=== PATIENT | male | born 1960 | race Caucasian/White ===

== ENCOUNTER 2022-08-13 15:17 | Inpatient (IN) | payer MEDICARE ==
[2022-08-13] MEDS ORDERED: Ondansetron PF 4 MG/2 ML Vial IVP PRN (17:25)
[2022-08-13] MEDS ORDERED: HYDROcodone/Acetaminophen 5/325 mg Tablet PO PRN (17:25)
[2022-08-13] MEDS ORDERED: Acetaminophen 325 MG TAB PO PRN (17:25)
[2022-08-13] MEDS ORDERED: Dextrose 50% Abboject 50 ML SYRINGE SLOW IVP PRN (17:34)
[2022-08-13] MEDS ORDERED: Dextrose 5% in Water 1,000 ML IV PRN (17:34)
[2022-08-13] MEDS ORDERED: hydrALAZINE 20 MG/ML VIAL SLOW IVP PRN (18:00)
[2022-08-13] MEDS ORDERED: Furosemide 100 MG/10 ML VIAL SLOW IVP SCH (18:00)
[2022-08-13 19:35] LABS: #Basophils 0.1 10x3/uL (0.0-0.2); #Eosinphils 0.1 10x3/uL (0.0-0.5); #Monocytes 1.3 10x3/uL (0.0-1.1); %Basophils 0.4 % (0.0-2.0); %Eosinophils 0.9 % (0.0-6.0); %Lymphocytes 16.5 % (18.0-47.0); %Monocytes 9.2 % (0.0-10.0); %Neutrophils 72.6 % (40.0-75.0); Hemoglobin 11.3 g/dL (13.5-17.5); Mean Corpuscular HGB CONC 32.3 g/dL (32.0-36.0); Mean Corpuscular Hemoglobin 24.1 pg (27.0-33.0); Mean Corpuscular Volume 74.8 fl (81.2-95.1); Mean Platelet Volume 9.9 fl (7.4-10.4); Platelet Count 275 10x3/uL (150-450); RBC Distribution Width 15.4 % (11.5-14.5); Red Blood Cell (RBC) Count 4.68 10x6/uL (4.32-5.72); White Blood Cell (WBC) Count 13.7 10x3/uL (3.5-10.5)
[2022-08-13 19:50] LABS: ALT (SGPT) 25 U/L (8-55); AST (SGOT) 32 U/L (5-34); Albumin 3.1 g/dL (3.4-4.8); Alkaline Phosphatase 74 U/L (40-110); Anion Gap 13 mmol/L (10-20); BUN (Urea Nitrogen) 39 mg/dL (8.4-25.7); Bilirubin, Total 0.8 mg/dL (0.2-1.2); Calc. Creatinine Clearance 24 mL/min (70-130); Calcium 8.3 mg/dL (7.8-10.44); Carbon Dioxide 21 mmol/L (23-31); Chloride 104 mmol/L (98-107); Estimated GFR 11; Globulin 3.6 g/dL (2.4-3.5); Glucose 122 mg/dL (80-115); Potassium 4.2 mmol/L (3.5-5.1); Protein, Total 6.7 g/dL (5.8-8.1); Sodium 134 mmol/L (136-145)
[2022-08-13] MEDS: Azithromycin 500 MG in Sodium Chloride 0.9% 250 ML 250 ML IVPB SCH (20:15)
[2022-08-13] MEDS: Heparin 5,000 UNITS/ML VIAL SC SCH (20:17)
[2022-08-13 20:19] LABS: Bilirubin Neg (Negative); Blood, Urine 250 (Negative); Clarity Clear (Clear); Glucose, Urine (Dipstick) 100 mg/dL (Negative); Ketone, Urine Negative (Negative); Leukocyte Negative (Negative); Nitrite Negative (Negative); Protein, Urine (Dipstick) 500 mg/dl (Neg-Trace); Specific Gravity, Urine 1.015 (1.005-1.030); Urobilinogen Normal mg/dL (Less than 2)
[2022-08-13 20:39] LABS: ALV-art Gradient 143.025 mmHg (0-20); Actual Bicarbonate (HCO3a) 21.8 mEq/L (22-28); Base Excess (BEa) -1.9 mEq/L (-2.0 to +3.0); CO2 Tension 33.5 mmHg (35.0-45.0); Calcium, Ionized (arterial) 1.04 mmol/L (1.12-1.30); Carboxyhemoglobin (COHb) 0.3 gm% (0.0-3.0); Critical Notified By: CP.PH; Hemoglobin (Hb) 11.8 g/dL (14.0-18.0); O2 Tension (PaO2), arterial 100.3 mmHg (> 80.0); Potassium - ABG Lab 3.8 mmol/L (3.70-5.30); Puncture Site RRA; RapidComm Collect By CP.PH; pH, Arterial 7.43 (7.35-7.45)
[2022-08-13 21:12] LABS: Bacteria/HPF Rare-Few HPF (None Seen); Transitional Epithelial 0-3 HPF (None Seen); WBC/HPF 0-3 HPF (0-3)
[2022-08-13] MEDS: Cefepime 1 GM in Sodium Chloride 0.9% 100 ML IVPB SCH (21:19)
[2022-08-13] MEDS: Furosemide 40 MG/4 ML VIAL SLOW IVP SCH (21:20)
[2022-08-13] MEDS: Nitroglycerin 2% Ointment 1 INCH/1 GM Packet TOP SCH (21:20)
[2022-08-13 21:36] LABS: CKMB 3.4 ng/mL (0-6.6)
[2022-08-14 03:33] LABS: #Basophils 0.1 10x3/uL (0.0-0.2); #Eosinphils 0.4 10x3/uL (0.0-0.5); #Monocytes 1.1 10x3/uL (0.0-1.1); #Neutrophils 6.8 10x3/uL (1.5-8.4); %Basophils 0.6 % (0.0-2.0); %Eosinophils 3.7 % (0.0-6.0); %Lymphocytes 19.7 % (18.0-47.0); %Monocytes 10.9 % (0.0-10.0); %Neutrophils 64.8 % (40.0-75.0); Hemoglobin 11.2 g/dL (13.5-17.5); Mean Corpuscular HGB CONC 31.7 g/dL (32.0-36.0); Mean Corpuscular Hemoglobin 24.4 pg (27.0-33.0); Mean Corpuscular Volume 76.9 fl (81.2-95.1); Mean Platelet Volume 9.7 fl (7.4-10.4); Platelet Count 251 10x3/uL (150-450); RBC Distribution Width 15.4 % (11.5-14.5); Red Blood Cell (RBC) Count 4.59 10x6/uL (4.32-5.72); White Blood Cell (WBC) Count 10.5 10x3/uL (3.5-10.5)
[2022-08-14 03:46] LABS: ALT (SGPT) 25 U/L (8-55); AST (SGOT) 30 U/L (5-34); Alkaline Phosphatase 75 U/L (40-110); Anion Gap 14 mmol/L (10-20); BUN (Urea Nitrogen) 42 mg/dL (8.4-25.7); Bilirubin, Total 0.7 mg/dL (0.2-1.2); Calc. Creatinine Clearance 23 mL/min (70-130); Calcium 8.3 mg/dL (7.8-10.44); Carbon Dioxide 22 mmol/L (23-31); Chloride 104 mmol/L (98-107); Estimated GFR 11; Globulin 3.5 g/dL (2.4-3.5); Glucose 109 mg/dL (80-115); Magnesium 1.7 mg/dL (1.6-2.6); Potassium 3.7 mmol/L (3.5-5.1); Protein, Total 6.5 g/dL (5.8-8.1); Sodium 136 mmol/L (136-145)
[2022-08-14 04:07] LABS: CKMB 2.9 ng/mL (0-6.6)
[2022-08-14] MEDS: Nitroglycerin 2% Ointment 1 INCH/1 GM Packet TOP SCH ×3 (06:07→21:11)
[2022-08-14] MEDS: Furosemide 40 MG/4 ML VIAL SLOW IVP SCH ×3 (06:07→21:11)
[2022-08-14] MEDS: Heparin 5,000 UNITS/ML VIAL SC SCH ×3 (07:41→20:55)
[2022-08-14 08:57] LABS: Iron 18 ug/dL (65-175); Iron Binding Capacity, Total 284 mcg/dL (261-462)
[2022-08-14] MEDS: Iron, Sodium Ferric Gluconate 250 MG in Sodium Chloride 0.9% 250 ML 250 ML IVPB SCH (09:52)
[2022-08-14] MEDS ORDERED: guaiFENesin/Codeine Phosphate 100 mg/10 mg 5 ml UD Cup PO PRN (14:14)
[2022-08-14] MEDS: Benzonatate 100 MG CAP PO PRN (14:21)
[2022-08-14] MEDS ORDERED: guaiFENesin/Codeine Phosphate 100 mg/10 mg 5 ml UD Cup PO SCH (15:00)
[2022-08-14] MEDS ORDERED: Fluticasone Propionate Nasal Spray 16 gm Bottle NASAL SCH (15:00)
[2022-08-14] MEDS: Azithromycin 500 MG in Sodium Chloride 0.9% 250 ML 250 ML IVPB SCH (17:13)
[2022-08-14] MEDS: HumaLOG 300 UNITS/3 ML VIAL SC PRN (17:13)
[2022-08-14] MEDS: Carvedilol 6.25 MG TAB PO SCH (17:14)
[2022-08-14] MEDS: Cefepime 1 GM in Sodium Chloride 0.9% 100 ML IVPB SCH (20:54)
[2022-08-14] MEDS: hydrALAZINE 25 MG TAB PO SCH (20:54)
[2022-08-15 04:09] LABS: Anion Gap 14 mmol/L (10-20); BUN (Urea Nitrogen) 45 mg/dL (8.4-25.7); Calc. Creatinine Clearance 23 mL/min (70-130); Calcium 8.6 mg/dL (7.8-10.44); Carbon Dioxide 24 mmol/L (23-31); Chloride 101 mmol/L (98-107); Estimated GFR 11; Glucose 106 mg/dL (80-115); Magnesium 1.6 mg/dL (1.6-2.6); Sodium 135 mmol/L (136-145)
[2022-08-15 04:45] VITALS: BMI 32.2
[2022-08-15] MEDS: Benzonatate 100 MG CAP PO PRN (06:27)
[2022-08-15] MEDS: Furosemide 40 MG/4 ML VIAL SLOW IVP SCH ×3 (06:27→21:47)
[2022-08-15] MEDS: Nitroglycerin 2% Ointment 1 INCH/1 GM Packet TOP SCH ×3 (06:27→21:48)
[2022-08-15] MEDS ORDERED: Magnesium 2 GM/50 ML(in water) 2 GM in Premix Bag 1 BAG IVPB SCH (08:00)
[2022-08-15] MEDS: Carvedilol 6.25 MG TAB PO SCH (09:00)
[2022-08-15] MEDS: hydrALAZINE 25 MG TAB PO SCH ×3 (09:01→21:47)
[2022-08-15] MEDS: Heparin 5,000 UNITS/ML VIAL SC SCH ×3 (09:01→21:48)
[2022-08-15] MEDS: Fluticasone Propionate Nasal Spray 16 gm Bottle NASAL SCH (09:01)
[2022-08-15] MEDS: Loratadine 10 MG TAB PO SCH (09:01)
[2022-08-15] MEDS: Iron, Sodium Ferric Gluconate 250 MG in Sodium Chloride 0.9% 250 ML 250 ML IVPB SCH ×2 (11:36→14:25)
[2022-08-15] MEDS: HumaLOG 300 UNITS/3 ML VIAL SC PRN (11:56)
[2022-08-15] MEDS: Carvedilol 25 MG TAB PO SCH (16:44)
[2022-08-15] MEDS ORDERED: Amlodipine 5 MG TAB PO SCH (18:00)
[2022-08-16 05:18] LABS: Anion Gap 16 mmol/L (10-20); BUN (Urea Nitrogen) 54 mg/dL (8.4-25.7); Calc. Creatinine Clearance 22 mL/min (70-130); Calcium 8.4 mg/dL (7.8-10.44); Carbon Dioxide 22 mmol/L (23-31); Chloride 99 mmol/L (98-107); Estimated GFR 11; Glucose 199 mg/dL (80-115); Magnesium 2.1 mg/dL (1.6-2.6); Potassium 3.8 mmol/L (3.5-5.1); Sodium 133 mmol/L (136-145)
[2022-08-16] MEDS: Nitroglycerin 2% Ointment 1 INCH/1 GM Packet TOP SCH (06:00)
[2022-08-16] MEDS: Furosemide 40 MG/4 ML VIAL SLOW IVP SCH ×3 (06:00→23:12)
[2022-08-16] MEDS: Fluticasone Propionate Nasal Spray 16 gm Bottle NASAL SCH (08:37)
[2022-08-16] MEDS: Amlodipine 10 MG TAB PO SCH (08:38)
[2022-08-16] MEDS: Sodium Bicarbonate Tab 325 MG TAB PO SCH ×2 (08:38→20:28)
[2022-08-16] MEDS: Loratadine 10 MG TAB PO SCH (08:38)
[2022-08-16] MEDS: Heparin 5,000 UNITS/ML VIAL SC SCH ×3 (08:39→20:28)
[2022-08-16] MEDS: Carvedilol 25 MG TAB PO SCH ×2 (08:39→17:21)
[2022-08-16] MEDS: HumaLOG 300 UNITS/3 ML VIAL SC PRN ×2 (12:33→17:14)
[2022-08-16] MEDS: Iron, Sodium Ferric Gluconate 250 MG in Sodium Chloride 0.9% 250 ML 250 ML IVPB SCH ×2 (13:43→20:28)
[2022-08-16 18:07] LABS: 24 Hr Creatinine 1258.6 mg/24 hr (950-2490); Creatinine, Urine 40.6 mg/dL (63-166)
[2022-08-17 04:42] LABS: Anion Gap 15 mmol/L (10-20); BUN (Urea Nitrogen) 51 mg/dL (8.4-25.7); Calc. Creatinine Clearance 21 mL/min (70-130); Calcium 8.5 mg/dL (7.8-10.44); Carbon Dioxide 24 mmol/L (23-31); Chloride 99 mmol/L (98-107); Estimated GFR 11; Glucose 227 mg/dL (80-115); Sodium 134 mmol/L (136-145)
[2022-08-17] MEDS: Furosemide 40 MG/4 ML VIAL SLOW IVP SCH ×3 (06:31→21:29)
[2022-08-17] MEDS: Fluticasone Propionate Nasal Spray 16 gm Bottle NASAL SCH (08:49)
[2022-08-17] MEDS: Loratadine 10 MG TAB PO SCH (08:49)
[2022-08-17] MEDS: Amlodipine 10 MG TAB PO SCH (08:49)
[2022-08-17] MEDS: Carvedilol 25 MG TAB PO SCH ×2 (08:49→17:20)
[2022-08-17] MEDS: Sodium Bicarbonate Tab 325 MG TAB PO SCH ×2 (08:49→21:29)
[2022-08-17] MEDS: Heparin 5,000 UNITS/ML VIAL SC SCH ×3 (08:49→21:42)
[2022-08-17] MEDS: Iron, Sodium Ferric Gluconate 250 MG in Sodium Chloride 0.9% 250 ML 250 ML IVPB SCH (10:20)
[2022-08-17] MEDS: HumaLOG 300 UNITS/3 ML VIAL SC PRN ×3 (12:39→21:39)
[2022-08-18 05:06] LABS: Anion Gap 15 mmol/L (10-20); BUN (Urea Nitrogen) 50 mg/dL (8.4-25.7); Calc. Creatinine Clearance 21 mL/min (70-130); Calcium 8.7 mg/dL (7.8-10.44); Carbon Dioxide 25 mmol/L (23-31); Chloride 97 mmol/L (98-107); Estimated GFR 10; Glucose 129 mg/dL (80-115); Potassium 3.9 mmol/L (3.5-5.1); Sodium 133 mmol/L (136-145)
[2022-08-18] MEDS: Furosemide 40 MG/4 ML VIAL SLOW IVP SCH ×3 (06:52→21:15)
[2022-08-18] MEDS: Loratadine 10 MG TAB PO SCH (08:38)
[2022-08-18] MEDS: Amlodipine 10 MG TAB PO SCH (08:38)
[2022-08-18] MEDS: Heparin 5,000 UNITS/ML VIAL SC SCH ×3 (08:38→20:44)
[2022-08-18] MEDS: Fluticasone Propionate Nasal Spray 16 gm Bottle NASAL SCH (08:38)
[2022-08-18] MEDS: Carvedilol 25 MG TAB PO SCH ×2 (08:38→17:09)
[2022-08-18] MEDS: Sodium Bicarbonate Tab 325 MG TAB PO SCH ×2 (08:38→20:44)
[2022-08-18] MEDS: HumaLOG 300 UNITS/3 ML VIAL SC PRN ×2 (17:47→20:52)
[2022-08-18] MEDS: tiZANidine HCl 4 MG TAB PO SCH (20:43)
[2022-08-18] MEDS: Gabapentin 300 MG CAP PO SCH (20:44)
[2022-08-19 05:28] LABS: Anion Gap 17 mmol/L (10-20); BUN (Urea Nitrogen) 55 mg/dL (8.4-25.7); Calc. Creatinine Clearance 21 mL/min (70-130); Carbon Dioxide 24 mmol/L (23-31); Chloride 98 mmol/L (98-107); Estimated GFR 11; Glucose 137 mg/dL (80-115); Potassium 4.1 mmol/L (3.5-5.1); Sodium 135 mmol/L (136-145)
[2022-08-19] MEDS: Furosemide 40 MG/4 ML VIAL SLOW IVP SCH (05:29)
[2022-08-19] MEDS ORDERED: Torsemide 100 MG TAB PO SCH (08:30)
[2022-08-19] MEDS: Heparin 5,000 UNITS/ML VIAL SC SCH ×3 (09:21→21:50)
[2022-08-19] MEDS: Carvedilol 25 MG TAB PO SCH ×2 (09:21→17:56)
[2022-08-19] MEDS: Loratadine 10 MG TAB PO SCH (09:21)
[2022-08-19] MEDS: Amlodipine 10 MG TAB PO SCH (09:21)
[2022-08-19] MEDS: tiZANidine HCl 4 MG TAB PO SCH ×2 (09:21→21:19)
[2022-08-19] MEDS: Sodium Bicarbonate Tab 325 MG TAB PO SCH ×2 (09:21→21:18)
[2022-08-19] MEDS: Gabapentin 300 MG CAP PO SCH ×2 (09:21→21:18)
[2022-08-19] MEDS: Fluticasone Propionate Nasal Spray 16 gm Bottle NASAL SCH (09:22)
[2022-08-19 15:37] LABS: A/G Ratio 0.7 (0.7-1.7); Albumin 2.5 g/dL (2.9-4.4); Alpha 1 0.3 g/dL (0.0-0.4); Alpha 2 1.2 g/dL (0.4-1.0); Beta 0.9 g/dL (0.7-1.3); Gamma 1.1 g/dL (0.4-1.8); Globulin, Total 3.5 g/dL (2.2-3.9); M-Spike Not Observed g/dL (Not Observed); Protein Electrophoresis Intrp Note: (.)
[2022-08-19] MEDS: HumaLOG 300 UNITS/3 ML VIAL SC PRN ×2 (18:33→21:20)
[2022-08-20 04:42] LABS: Anion Gap 13 mmol/L (10-20); BUN (Urea Nitrogen) 61 mg/dL (8.4-25.7); Calc. Creatinine Clearance 21 mL/min (70-130); Calcium 8.8 mg/dL (7.8-10.44); Carbon Dioxide 27 mmol/L (23-31); Chloride 97 mmol/L (98-107); Estimated GFR 11; Glucose 176 mg/dL (80-115); Potassium 4.3 mmol/L (3.5-5.1); Sodium 133 mmol/L (136-145)
[2022-08-20] MEDS: HumaLOG 300 UNITS/3 ML VIAL SC PRN (06:05)
[2022-08-20 06:39] VITALS: TEMP 98.7
[2022-08-20] MEDS: Sodium Bicarbonate Tab 325 MG TAB PO SCH (08:39)
[2022-08-20] MEDS: Gabapentin 300 MG CAP PO SCH (08:39)
[2022-08-20] MEDS: Fluticasone Propionate Nasal Spray 16 gm Bottle NASAL SCH (08:39)
[2022-08-20] MEDS: Heparin 5,000 UNITS/ML VIAL SC SCH (08:41)
[2022-08-20] MEDS: Carvedilol 25 MG TAB PO SCH (08:42)
[2022-08-20] MEDS: tiZANidine HCl 4 MG TAB PO SCH (08:42)
[2022-08-20] MEDS: Amlodipine 10 MG TAB PO SCH (08:42)
[2022-08-20] MEDS: Loratadine 10 MG TAB PO SCH (08:42)
[2022-08-20 08:43] VITALS: BP 126/59
[2022-08-20] MEDS ORDERED: Torsemide 100 MG TAB PO SCH (09:00)
[2022-08-20] MEDS ORDERED: traMADol HCl 50 MG TAB PO SCH (09:15)
== END 2022-08-20 11:16 | disposition home or self-care (01) | DRG 291 ==
LOC: CSHTELE 15:17 → CSHIMCU 17:23 → CSHTELE 08-15 17:41
PROVIDERS: ADMIT Internal Medicine; ATTEND Family Medicine
PROC: 4A033R1 Measurement of Arterial Saturation, Peripheral, Percutaneous Approach (ICD-10-PCS; principal; 2022-08-13)
PROC: 5A09357 Assistance with Respiratory Ventilation, Less than 24 Consecutive Hours, Continuous Positive Airway Pressure (ICD-10-PCS; 2022-08-13)
DX: I13.0 Hypertensive heart and chronic kidney disease with heart failure and stage 1 through stage 4 chronic kidney disease, or unspecified chronic kidney disease (principal); I50.33 Acute on chronic diastolic (congestive) heart failure; J96.01 Acute respiratory failure with hypoxia; N18.4 Chronic kidney disease, stage 4 (severe); E87.20 Acidosis, unspecified; N17.9 Acute kidney failure, unspecified; E78.5 Hyperlipidemia, unspecified; E11.22 Type 2 diabetes mellitus with diabetic chronic kidney disease; E11.65 Type 2 diabetes mellitus with hyperglycemia; E11.21 Type 2 diabetes mellitus with diabetic nephropathy; D63.1 Anemia in chronic kidney disease; E66.01 Morbid (severe) obesity due to excess calories; Z20.822 Contact with and (suspected) exposure to COVID-19; Z79.899 Other long term (current) drug therapy; Z90.49 Acquired absence of other specified parts of digestive tract; Z89.412 Acquired absence of left great toe; Z89.422 Acquired absence of other left toe(s); Z87.891 Personal history of nicotine dependence; Z68.29 Body mass index [BMI] 29.0-29.9, adult
CPT/HCPCS: 36415; 36416; 36600; 71046; 80048; 80053; 81001; 82010; 82553; 82570; 82728; 82805; 83540; 83550; 83735; 83880; 84145; 84155; 84156; 84165; 84166; 84484; 85025; 93306; 94660; 94760; J0456; J0692; J1644; J1815; J1940; J2916; J3475; J3490; J7050